=== PATIENT | female | born 1985 | race African-American/Black ===

== ENCOUNTER 2019-05-05 06:10 | Inpatient (IN) | payer OTHER ==
[2019-05-04 09:53] VITALS: BMI 21.6
[2019-05-05] MEDS ORDERED: DEXAMETHASONE SOD PHOSPHATE/PF 10 MG/ML SDV ONE (07:02)
[2019-05-05] MEDS ORDERED: MIDAZOLAM HCL 2 MG/2 ML SINGLE DOSE VIAL ONE ×4 (07:25→07:39)
--- NOTE | 2019-05-05 07:39 | HP ---
Admitting History and Physical - Admission Chief Complaint: Fibroid uterus History of Present Illness: 33 yo Para 0, with no past medical h/o, is pre op for abdominal myomectomy. She had a pelvic sonogram showing evidence of an enlarged uterus. History Source: Patient Limitations to Obtaining History: No Limitations - Past Medical History ...LMP Comment: constant irregular bleeding ...: No ...: 0 ...Para: 0 - Past Surgical History Past Surgical History: Yes: None - Smoking History Smoking history: Never smoked Have you smoked in the past 12 months: No - Alcohol/Substance Use Hx Alcohol Use: Yes (occassional) - Social History Usual Living Arrangement: Yes: Alone History of Recent Travel: No Home Medications - Allergies Allergies/Adverse Reactions: Allergies Allergy/AdvReac Type Severity Reaction Status Date / Time No Known Allergies Allergy Verified 05/04/19 09:45 - Home Medications Home Medications: Ambulatory Orders Ferrous Sulfate 325 mg PO DAILY 05/04/19 Fluticasone/Salmeterol [Advair Hfa 115-21 Mcg Inhaler] 2 inh PO BID 05/04/19 Family Medical History Family History: Unremarkable Review of Systems - Review of Systems Constitutional: reports: No Symptoms Eyes: reports: No Symptoms HENT: reports: No Symptoms Neck: reports: No Symptoms Cardiovascular: reports: No Symptoms Respiratory: reports: No Symptoms Gastrointestinal: reports: No Symptoms Genitourinary: reports: No Symptoms Breasts: reports: No Symptoms Reported Musculoskeletal: reports: No Symptoms Integumentary: reports: No Symptoms Neurological: reports: No Symptoms Psychiatric: reports: No Symptoms Pain Intensity: 0 Physical Examination Vital Signs: Vital Signs Temperature 98.4 F 05/05/19 07:04 Pulse Rate 82 05/05/19 07:04 Respiratory Rate 20 05/05/19 07:04 Blood Pressure 114/75 05/05/19 07:04 O2 Sat by Pulse Oximetry (%) 100 05/05/19 07:04 Constitutional: Yes: No Distress Eyes: Yes: Conjunctiva Clear HENT: Yes: Atraumatic Neck: Yes: Supple Cardiovascular: Yes: Regular Rate and Rhythm Respiratory: Yes: Regular Gastrointestinal: Yes: Normal Bowel Sounds Breast(s): Yes: WNL Musculoskeletal: Yes: WNL Extremities: Yes: WNL Neurological: Yes: Alert, Oriented ...Motor Strength: WNL Psychiatric: Yes: Alert, Oriented Problem List - Problems (1) Leiomyoma of body of uterus Problems reviewed: Yes Code(s): D25.9 - LEIOMYOMA OF UTERUS, UNSPECIFIED Assessment/Plan Leiomyoma of the uterus Pre op for abdominal myomectomy Consent signed Anesthesia to see patient
[2019-05-05] MEDS ORDERED: ROCURONIUM BROMIDE 50 MG/5 ML SYRINGE ONE (07:47)
[2019-05-05] MEDS ORDERED: PROPOFOL 20 ML ONE (07:47)
[2019-05-05] MEDS ORDERED: ceFAZolin 2 GRAM PREMIX BAG IVPB ONE (07:52)
[2019-05-05] MEDS ORDERED: fentaNYL CITRATE 250 MCG/5 ML VIAL ONE ×2 (08:08→09:08)
[2019-05-05] MEDS ORDERED: EPINEPHrine/PF 1 MG/1 ML (1:1,000) AMPULE ONE (08:48)
[2019-05-05] MEDS ORDERED: ceFAZolin SODIUM 1 GM VIAL ONE ×3 (09:07→22:22)
[2019-05-05] MEDS ORDERED: BENZOIN/ALOE VERA/STORAX/TOLU 58 ML BOTTLE ONE (09:07)
[2019-05-05] MEDS ORDERED: DEXAMETHASONE SOD PHOSPHATE 4 MG/1 ML VIAL ONE (09:07)
[2019-05-05] MEDS ORDERED: KETOROLAC TROMETHAMINE 30 MG/1 ML VIAL ONE (09:07)
[2019-05-05] MEDS ORDERED: GLYCOPYRROLATE 0.2 MG/1 ML VIAL ONE ×2 (09:08)
[2019-05-05] MEDS ORDERED: NEOSTIGMINE METHYLSULFATE 0.5 MG/ML - 10 ML MDV ONE (09:08)
--- NOTE | 2019-05-05 09:21 | OP ---
Operative Note - Note: Operative Date: 05/05/19 Pre-Operative Diagnosis: Leiomyoma of the uterus Operation: Abdominal myomectomy Findings: 1 large and 2 small myomas Post-Operative Diagnosis: Same as Pre-op Surgeon: Serenity Mora Supervisor Fertilizer: Gabriel Zuleta Anesthesia: General Specimens Removed: Fibroid Estimated Blood Loss (mls): 300 Operative Report Dictated: Yes
--- NOTE | 2019-05-05 09:26 | PN ---
Progress Note (short form) - Note Progress Note: I assisted Dr. Garcia at myomectomy for the entirety of the case.
[2019-05-05] MEDS ORDERED: DEXTROSE 5%-LACTATED RINGERS 1,000 ML IV SCH (09:30)
[2019-05-05] MEDS ORDERED: ONDANSETRON 4 MG/2 ML VIAL IVPUSH PRN (09:40)
[2019-05-05] MEDS ORDERED: PROMETHAZINE HCL 25 MG/1 ML VIAL IVPB PRN (09:40)
[2019-05-05] MEDS ORDERED: CEFAZOLIN 1 GM in DEXTROSE 5%-WATER - 50 ML IVPB SCH ×2 (10:00→22:20)
[2019-05-05] MEDS ORDERED: HYDROmorphone *PCA* 10MG/50ML DISP.SYRIN ONE (10:11)
[2019-05-05] MEDS: HYDROmorphone *PCA* 10MG/50ML DISP.SYRIN PCA SCH ×2 (10:40→17:08)
[2019-05-05 12:32] LABS: BASO % 0.1 % (0-2.0); HEMATOCRIT 31.6 % (32.4-45.2); HEMOGLOBIN 10.2 GM/dL (10.7-15.3); LYMPH % 6.4 % (8-40); MCHC 32.2 g/dl (32.0-36.0); MEAN CELL VOLUME 96.4 fl (80-96); MEAN PLT VOLUME 8.2 fl (7.5-11.1); NEUT % 91.5 % (42.8-82.8); PLATELET COUNT 235 K/MM3 (134-434); RBC 3.28 M/mm3 (3.60-5.2); RDW 15.1 % (11.6-15.6); WHITE BLOOD COUNT 11.8 K/mm3 (4.0-10.0)
[2019-05-05 12:58] LABS: BLOOD UREA NITROGEN 9.4 mg/dL (7-18); CALCIUM 8.2 mg/dL (8.5-10.1); CREATININE 0.8 mg/dL (0.55-1.3); POTASSIUM 3.9 mmol/L (3.5-5.1)
[2019-05-05] MEDS: LACTATED RINGERS SOLUTION 1,000 ML IV SCH (13:30)
[2019-05-05 13:37] LABS: ANISOCYTOSIS 1+; MACROCYTOSIS 0
[2019-05-05 13:55] LABS: PLATELET ESTIMATE ADEQUATE
[2019-05-05] MEDS ORDERED: CEFAZOLIN 1 GM/D5W 1 GM/50 ML BAG IVPB SCH (15:00)
[2019-05-05] MEDS ORDERED: DEXTROSE 5%-WATER - 50 ML IVPB ONE (22:22)
[2019-05-06] MEDS: HYDROmorphone *PCA* 10MG/50ML DISP.SYRIN PCA SCH (01:03)
[2019-05-06] MEDS: LACTATED RINGERS SOLUTION 1,000 ML IV SCH (01:06)
[2019-05-06] MEDS: IBUPROFEN 800 MG/8 ML IJ IVPB PRN ×3 (01:23→22:47)
--- NOTE | 2019-05-06 09:55 | PN ---
Progress Note (short form) - Note Progress Note: Anesthesiology Post-op/Pain Management 33 y.o. woman POD#1 s/p Myomectomy under GA with post-op MORTGAGE BROKER. She is awake/alert, doing well this morning. She does, however c/o pain. MORTGAGE BROKER was just d/c/'d by primary team and she is being started on PO analgesia. Per RN , pt. will be assisted OOB to chair today. Jones d/c'd. VSS. Stable post-operative course. Continue management as per primary team.
[2019-05-06] MEDS: oxyCODONE HCL 5 MG TABLET PO PRN ×3 (11:42→20:03)
--- NOTE | 2019-05-06 13:09 | PN ---
Progress Note (short form) - Note Progress Note: 33 yo Para 0, status post abdominal myomectomy, seen and evaluated. She c/o incision pain and body itch. She tolerates regular diet. PE : HEENT : WNL Nasal canula in place. Chest : Mild wheezing Heart : S1S2, RRR, no murmur EXT : No calf tenderness, Venodyne boots in place. ASS : Status post abdominal myomectomy Ambulation Analgesia Benadryl for itching D/C gregg catheter D/C IVF Regular diet Ferrous sulfate Albuterol pump PRN Continue close monitoring Problem List - Problems (1) Leiomyoma of body of uterus Code(s): D25.9 - LEIOMYOMA OF UTERUS, UNSPECIFIED
[2019-05-06] MEDS ORDERED: ALBUTEROL SO4 0.083% IH SOL 2.5 MG/3 ML VIAL.NEB. NEB PRN (13:10)
--- NOTE | 2019-05-06 16:21 | PATH ---
Surgical Pathology Report Patient Name: ROMAINE RAMIREZ Med. Rec. #: [id number] /Age/Gender: 1985 (Age: 33) / F Account: [id number] Location: [facility] MED/SURG Taken: 05/05/2019 Received: 05/05/2019 Reported: 05/06/2019 Physicians: Serenity Mora M.D. Specimen(s) Received FIBROIDS Clinical History Leiomyoma of uterus Final Diagnosis FIBROIDS, EXCISION: LEIOMYOMAS, 44 GRAMS. Electronically Signed Juvenal Pennington M.D. Gross Description Received in formalin labeled "fibroids," is a 44 g aggregate of 3 inman, rubbery nodules ranging from 0.8-4.3 cm in greatest dimension. Sectioning reveals homogeneous inman, rubbery parenchyma with whorled architecture. No areas of hemorrhage or necrosis are identified. [employer] sections are submitted in 3 cassettes as follows: 1-two smaller fibroids; 2-3-largest fibroid. /05/05/2019 saudi/05/05/2019
[2019-05-06] MEDS: FERROUS SO4 325 MG TABLET (FP) PO SCH (22:47)
[2019-05-07] MEDS: oxyCODONE HCL 5 MG TABLET PO PRN ×3 (07:20→17:55)
--- NOTE | 2019-05-07 10:39 | PN ---
Progress Note (short form) - Note Progress Note: 33 yo Para 0, status post abdominal myomectomy, seen and evaluated. She c/o incision pain and body itch. She tolerates regular diet. There has been some improvement since yesterday but has not passed any bowel movement. PE : HEENT : WNL Nasal canula in place. Chest : Mild wheezing Heart : S1S2, RRR, no murmur Abd : Soft, + incision pain. Dressing removed, sterile strips in place. No bleeding, no signs of infections. EXT : No calf tenderness, Venodyne boots in place. ASS : Status post abdominal myomectomy Ambulation Analgesia Benadryl for itching Regular diet Ferrous sulfate Albuterol pump PRN Consider D/C home tomorrow morning Problem List - Problems (1) Leiomyoma of body of uterus Problems reviewed: Yes Code(s): D25.9 - LEIOMYOMA OF UTERUS, UNSPECIFIED
[2019-05-07] MEDS: IBUPROFEN 800 MG/8 ML IJ IVPB PRN ×2 (11:33→21:22)
[2019-05-07] MEDS: FERROUS SO4 325 MG TABLET (FP) PO SCH ×2 (11:35→21:23)
[2019-05-08] MEDS: oxyCODONE HCL 5 MG TABLET PO PRN ×2 (03:54→08:35)
--- NOTE | 2019-05-08 09:19 | DS ---
Physical Examination Vital Signs: Vital Signs Temperature 98.1 F 05/08/19 06:00 Pulse Rate 78 05/08/19 06:00 Respiratory Rate 18 05/08/19 06:00 Blood Pressure 112/72 05/08/19 06:00 O2 Sat by Pulse Oximetry (%) 98 05/07/19 09:00 Constitutional: Yes: No Distress Eyes: Yes: Conjunctiva Clear HENT: Yes: Atraumatic Neck: Yes: Supple Cardiovascular: Yes: Regular Rate and Rhythm Respiratory: Yes: Regular Gastrointestinal: Yes: Normal Bowel Sounds Musculoskeletal: Yes: WNL Extremities: Yes: WNL Wound/Incision: Yes: Well Approximated, Steri Strips (in place) Neurological: Yes: Alert, Oriented ...Motor Strength: WNL Psychiatric: Yes: Alert, Oriented Labs: CBC, BMP 05/05/19 12:11 05/05/19 12:13 Discharge Summary Problems reviewed: Yes Reason For Visit: LEIOMYOMA OF UTERUS Current Active Problems Leiomyoma of body of uterus (Acute) Status post myomectomy (Acute) Procedures: Principal: Abdominal myomectomy Hospital Course: Post op care Patient was straight catheterized on post op day one due to inability to urinate. Health Concerns: None Plan of Treatment: Analgesia Ambulation F/U with MD in 1 week Goals: Resume normal activities in 3-4 weeks Condition: Good - Instructions Diet, Activity, Other Instructions: Regular diet No driving, no lifting x 4 weeks F/U with MD in 1 week. Disposition: HOME - Home Medications Comprehensive Discharge Medication List: Ambulatory Orders Ferrous Sulfate 325 mg PO DAILY 05/04/19 Fluticasone/Salmeterol [Advair Hfa 115-21 Mcg Inhaler] 2 inh PO BID 05/04/19
[2019-05-08] MEDS: FERROUS SO4 325 MG TABLET (FP) PO SCH (09:36)
[2019-05-08 11:51] VITALS: BP 142/86; PULSE 84; TEMP 97.2
--- NOTE | 2019-05-12 15:33 | OP ---
DATE OF OPERATION: 05/05/2019 PREOPERATIVE DIAGNOSIS: Leiomyoma of the uterus. POSTOPERATIVE DIAGNOSIS: Leiomyoma of the uterus. PROCEDURE: An abdominal myomectomy. SURGEON: Serenity Mora MD FUDGE CANDY MAKER: Gabriel Zuleta MD ANESTHESIA: General. COMPLICATION: None. ESTIMATED BLOOD LOSS: 200 mL PROCEDURE: Patient was taken to the operating room where general anesthesia was administered. Patient was then prepped and draped in proper sterile fashion. A Pfannenstiel skin incision was made and carried down to the underlying layer of fascia. The fascia was incised in the midline and extended laterally. The inferior aspect of the fascial incision was then grasped with a Taya clamp, elevated and the rectus muscle dissected off bluntly. Attention was then turned to the superior aspect of the fascial incision, which in a similar fashion was then grasped with a Taya clamp, elevated and the rectus muscle dissected off bluntly. The rectus muscle was then in the midline, the peritoneum identified and entered sharply with the Metzenbaum scissors. This incision was extended superiorly and inferiorly with good visualization of the bladder. Then a survey of the patient's pelvis revealed an enlarged uterus with 1 large myoma and 2 small myomas at the fundus. The uterus was then exteriorized. The bowel was packed with moist laparotomy sponges. Pitressin was then injected over the fundus of the uterus. Then using the Bovie cautery an incision was made on the anterior portion of the uterus and several Allis clamps were placed over the edge of the uterus and using a , the myoma was grabbed and shelled out of the uterus, and the same procedure was performed on the 2 smaller myomas. Then the incisions were closed in layers using 2-0 Vicryl and the 2-0 Biosyn was used for the baseball stitch for the serosal layer. So, then when finished the pelvis was completely irrigated. Interceed was placed over the incision and the uterus was returned to the abdomen. The peritoneum was closed using 2-0 Biosyn. The fascia was reapproximated using 0 Vicryl in a running fashion and the skin was closed in a subcuticular fashion using 3-0 Vicryl. Patient tolerated procedure well. Patient was taken to PACU in stable condition. PATHOLOGY: Myomas. SERENITY MORA M.D. KACY/[id number]
== END 2019-05-08 17:25 | disposition home or self-care (01) | DRG 743 ==
LOC: JSAMEDAYSX 06:10 → J3W 13:49 → J8W 17:07
PROVIDERS: ADMIT Obstetrics & Gynecology; ATTEND Obstetrics & Gynecology
PROC: 0UB90ZZ Excision of Uterus, Open Approach (ICD-10-PCS; principal; 2019-05-05 07:30)
DX: D25.9 Leiomyoma of uterus, unspecified (principal); R33.9 Retention of urine, unspecified
CPT/HCPCS: 36415; 80048; 84703; 85025; 86850; 86900; 86901; 88305-TC; 94010; 94760